=== PATIENT | female | born 1950 | race Two or more races ===

== ENCOUNTER 2017-08-01 11:11 | Outpatient (CLI) | payer OTHER | END 2017-08-01 17:00 | disposition home or self-care (01) | LOC: MAMO-SONO 11:11 | DX: N63.11 Unspecified lump in the right breast, upper outer quadrant (principal); N63.10 Unspecified lump in the right breast, unspecified quadrant; N63.20 Unspecified lump in the left breast, unspecified quadrant ==

== ENCOUNTER → 2017-08-01 | Outpatient (CLI) | payer OTHER | END | disposition home or self-care (01) | LOC: NUCLEAR 12:54 | DX: M81.0 Age-related osteoporosis without current pathological fracture (principal) ==

== ENCOUNTER 2018-08-26 12:20 | Outpatient (CLI) | payer OTHER | END 2018-08-26 12:24 | disposition home or self-care (01) | LOC: MAMO-SONO 12:20 | DX: Z12.31 Encounter for screening mammogram for malignant neoplasm of breast (principal); Z85.3 Personal history of malignant neoplasm of breast; E03.8 Other specified hypothyroidism; E04.8 Other specified nontoxic goiter ==

== ENCOUNTER 2019-09-06 11:02 | Outpatient (CLI) | payer OTHER | END 2019-09-06 11:20 | disposition home or self-care (01) | LOC: MAMO-SONO 11:02 | DX: Z12.31 Encounter for screening mammogram for malignant neoplasm of breast (principal); Z87.898 Personal history of other specified conditions; N63.10 Unspecified lump in the right breast, unspecified quadrant; N63.20 Unspecified lump in the left breast, unspecified quadrant; Z00.00 Encounter for general adult medical examination without abnormal findings; R92.0 Mammographic microcalcification found on diagnostic imaging of breast ==

== ENCOUNTER 2019-09-06 14:10 | Outpatient (CLI) | payer OTHER | END 2019-09-06 14:19 | disposition home or self-care (01) | LOC: NUCLEAR 14:10 | DX: M81.0 Age-related osteoporosis without current pathological fracture (principal) ==